=== PATIENT | female | born 1960 | race Caucasian/White ===

== ENCOUNTER 2020-11-17 03:04 | Outpatient (CLI) | payer MEDICARE, SELFPAY ==
[2020-11-17 12:39] LABS: Abs Immature Grans 0.02 10^3/uL (0.0-0.06); Absolute Basophil Count 0.08 10^3/uL (0.0-0.2); Absolute Eosinophil Count 0.32 10^3/uL (0.0-0.7); Absolute Lymphocyte Count 2.25 10^3/uL (1.2-3.4); Absolute Monocyte Count 0.55 10^3/uL (0.1-0.8); Absolute Neutrophil Count 3.63 10^3/uL (1.2-6.7); Basophils % 1.2; Eosinophils % 4.7; HCT 43.8 % (36.0-46.0); HGB 14.1 g/dL (11.2-15.7); Immature Grans % 0.3; Lymphocytes % 32.8; MCHC 32.2 % (32.0-36.0); MCV 96.3 fL (80-95); MPV 9.6 fL (8.0-11.0); Nucleated RBC 0 %; Platelet Count 343 10^3/uL (130-400); RBC 4.55 10^6/uL (3.93-5.22); RDW 12.3 % (11.7-14.6); RDW-SD 44.3 fL; WBC 6.85 10^3/uL (4.4-10.8)
[2020-11-17 13:14] LABS: ALT 24 U/L (14-59); AST 17 U/L (15-37); Albumin 3.9 g/dL (3.4-5.0); Alkaline Phosphatase 94 U/L (46-116); BUN 13 mg/dL (7-18); Bilirubin, Total 0.5 mg/dL (0.2-1.0); CREATININE 0.6 mg/dL (0.55-1.02); Calcium 9.1 mg/dL (8.5-10.1); Chloride 104 mmol/L (98-107); Glucose 87 mg/dL (74-106); Potassium 4.4 mmol/L (3.5-5.1); Sodium 140 mmol/L (136-145); TSH (W/Ref FT4) 0.47 uIU/mL (0.36-3.74); Total Protein 7.3 g/dL (6.4-8.2)
[2020-11-17 16:27] LABS: ESR 18 mm/hr (<or=30)
== END 2020-11-17 03:05 | disposition home or self-care (01) ==
LOC: LOS 03:05
PROVIDERS: PCP Family Medicine; Visit Provider Family Medicine
DX: R53.83 Other fatigue (principal); R22.1 Localized swelling, mass and lump, neck; F17.200 Nicotine dependence, unspecified, uncomplicated
CPT/HCPCS: 36415; 80053; 85652; 84443; 85025

== ENCOUNTER 2020-11-18 03:08 | Outpatient (CLI) | payer MEDICARE, SELFPAY ==
--- NOTE | 2020-11-18 08:45 | DI.CTLCSR_ITS ---
EXAM: CT CHEST LUNG CANCER SCREEN CLINICAL HISTORY: Screening for lung cancer,current smoker, f17.210 TECHNIQUE: Imaging Protocol: Axial computed tomography images with coronal and sagittal reformatted images were created and reviewed COMPARISON: No exams were available for comparison FINDINGS: Tracheobronchial tree: Patent where visualized. Mediastinum and Phoebe: No dominant adenopathy or fluid collection. Pulmonary parenchyma: No consolidation or dominant measurable mass. Minimal scarring or atelectasis a t the posterior lung bases. Minimal emphysematous changes. Lung Nodules: None. Pleura: No effusion or pneumothorax. Heart: The heart is not dilated. Minimal coronary artery calcifications are seen. Aorta: Thoracic aorta non-dilated.Mild calcification. Upper abdomen: Unremarkable. Bones: Degenerative disc changes. Soft Tissues: Unremarkable. IMPRESSION: Normal low dose CT lung screening Category Lung RADS Cat 1 - Negative: No nodules and definitely benign nodules Lung-RADS 1.0 CATEGORIES: Category 0 - Prior chest CT exam(s) being located for comparison. Category 1 - Annual screening in 12 months. No nodules or definitely benign nodules. Category 2 - Annual screening in 12 months. Benign appearance. Nodules with low likelihood of becomin g active cancer. Category 3 - 6-month follow-up. Probably benign. Short-term follow-up suggested. Nodules with low lik elihood of becoming active cancer. Category 4A - 3-month follow-up and CT/PET if >8 mm in size. Suspicious finding. Findings which requi re additional testing. Category 4B - Findings which require additional testing and tissue sampling. Suspicious finding. C Added to Any of the Above - History of prior lung cancer screening. S Added to Any of the Above - Significant unexpected other finding. RADIATION DOSE DELIVERED: 78.48mGy.cm Total DLP 1.84mGy CTDIvol DATA REPOSITORY: All CT scans at this facility are submitted to the National Radiology Data Registry (NRDR) Dose Index Registry (DIR) with the [employer] (ACR). RADIATION OPTIMIZATION: All CT scans at this facility use at least one of these dose optimization te chniques: automated exposure control; mA and/or kV adjustment per patient size (includes targeted exa ms where dose is matched to clinical indication); or iterative reconstruction.
[2020-11-18] MEDS: Normal Saline Flush 10 ML SYR IVP (13:42)
[2020-11-18] MEDS: Omnipaque 350 MG/ML 100 ML BTL IJ (13:42)
[2020-11-18] MEDS: Normal Saline - Diluent 50 ML VIAL IV (13:43)
--- NOTE | 2020-11-18 13:45 | DI.CT_ITS ---
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 TECHNIQUE: Imaging Protocol: Axial computed tomography images with coronal and sagittal reformatted images were created and reviewed. CONTRAST MATERIAL: Intravenous: Omnipaque 350 Contrast volume:100 ml Contrast route:IV - COMPARISON: No exams were available for comparison FINDINGS: Ventricles and Extra axial spaces: Normal in size and morphology for the patient's age. Hemorrhage: None. Cerebral parenchyma: Normal. Enhancement: No suspicious enhancement. Midline shift: None. Brainstem/Cerebellum: Normal. Calvarium: Normal. Visualized Paranasal sinuses/Mastoids: Clear. Orbits and pituitary are unremarkable. IMPRESSION: Normal CT scan of the head. RADIATION DOSE DELIVERED: Total DLP DATA REPOSITORY: All CT scans at this facility are submitted to the National Radiology Data Registry (NRDR) Dose Index Registry (DIR) with the [employer] (ACR). RADIATION OPTIMIZATION: All CT scans at this facility use at least one of these dose optimization te chniques: automated exposure control; mA and/or kV adjustment per patient size (includes targeted exa ms where dose is matched to clinical indication); or iterative reconstruction.
--- NOTE | 2020-11-18 13:45 | DI.CT_ITS ---
EXAM: CT NECK W CLINICAL HISTORY: disseminated pleomorphic adenoma,MASS IN NECK,R22.1. TECHNIQUE: Imaging Protocol: Axial computed tomography images with coronal and sagittal reformatted images were created and reviewed CONTRAST MATERIAL: Intravenous: Omnipaque 350 Contrast volume:100 ml Contrast route:IV - COMPARISON: No exams were available for comparison FINDINGS: Parotids/submandibular/thyroid gland: Normal. Carotids/Jugular: Mild calcific plaque at the common carotid bulbs. No significant stenosis. Soft tissues: Markers are placed on the left side of the neck in the area of the palpable abnormaliti es. There are circumscribed mildly heterogeneous soft tissue masses corresponding to the palpable ab normalities. The larger and more anterior measures 2.5 by 1.8 by 2 cm. There are a few other tiny a djacent nodules. Two other nodules were marked, 1 measuring 13 millimeters in diameter and the other measuring 15 by 9 millimeters. The floor the mouth is unremarkable. The epiglottis and vocal cords are within normal limits. Minimal emphysematous changes at the lung apices. Degenerative changes are seen in the cervical spine. IMPRESSION: Circumscribed soft tissue density masses on the left side of the neck as described above. RADIATION DOSE DELIVERED: Total DLP DATA REPOSITORY: All CT scans at this facility are submitted to the National Radiology Data Registry (NRDR) Dose Index Registry (DIR) with the [employer] (ACR). RADIATION OPTIMIZATION: All CT scans at this facility use at least one of these dose optimization te chniques: automated exposure control; mA and/or kV adjustment per patient size (includes targeted exa ms where dose is matched to clinical indication); or iterative reconstruction.
== END 2020-11-18 03:09 ==
LOC: DI 03:08
PROVIDERS: PCP Family Medicine; Visit Provider Family Medicine
DX: Z12.2 Encounter for screening for malignant neoplasm of respiratory organs (principal); F17.210 Nicotine dependence, cigarettes, uncomplicated; R22.1 Localized swelling, mass and lump, neck
CPT/HCPCS: 70491; 71271; 70470; J3490

== ENCOUNTER 2020-12-14 10:50 | Outpatient (REF) | payer MEDICARE, SELFPAY ==
--- NOTE | 2020-12-14 09:45 | PAPNONF_PTH ---
PATIENT: Nida Madden LOC: [facility] U#:[id number] AGE/SX: 60/F ROOM: RE12/14/[address]: CONSUELO Burns : 1960 BED: DIS: 12/14/2020 SPEC #: [id number] RECD: 12/15/20 13:03 STATUS: RAFAL REJuanita #: [id number] ABBI: 12/14/20 09:[address]: Trey Cope DEPT: [facility] Cytology RECD BY: Geraldine Wong ENTERED: 12/15/20 13:04 SP TYPE: LUANN MALDONADO DR: Cindy Fitch MD, DC Tissues: 1 - BODY FLUID CYTO-FINE NEEDLE ASPIRATE-[facility] 2 - BODY FLUID CYTO-FINE NEEDLE ASPIRATE-[facility] 3 - BODY FLUID CYTO-FINE NEEDLE ASPIRATE-[facility] Procedures: IMMUNOPEROXIDASE STAIN BODY FLUID CYTO-FINE NEEDLE ASPIRATE-[facility] Comments: [id number]
== END 2020-12-14 10:51 | disposition home or self-care (01) ==
LOC: LBN 10:50
PROVIDERS: PCP Family Medicine; Visit Provider Physician Assistant
DX: D37.030 Neoplasm of uncertain behavior of the parotid salivary glands (principal)
CPT/HCPCS: 88104; 88361

== ENCOUNTER 2021-05-04 13:54 | Outpatient (CLI) | payer MEDICARE, SELFPAY ==
--- NOTE | 2021-05-04 13:45 | RT.EKG_ITS ---
APPROVED REPORT Exam: Resting ECG Reason for Exam: Pre-op exam Patient Location: O HR:68 bpm ECG Measurements Heart Rate 68 AXIS [place] 148 P 13 QRSd 91 QRS 31 QT 385 T 51 QTc 409 Conclusion Sinus rhythm...normal P axis, V-rate 60- 99
== END 2021-05-04 13:55 | disposition home or self-care (01) ==
LOC: DI.CM 13:55
PROVIDERS: PCP Family Medicine; Visit Provider Family Medicine
DX: Z01.818 Encounter for other preprocedural examination (principal)
CPT/HCPCS: 93010

== ENCOUNTER 2021-07-05 04:14 | Outpatient (CLI) | payer MEDICARE, SELFPAY ==
[2021-07-05 09:38] LABS: CREATININE 0.7 mg/dL (0.55-1.02)
== END 2021-07-05 04:15 | disposition home or self-care (01) ==
LOC: LBO 04:14
PROVIDERS: PCP Family Medicine; Visit Provider Preventive Medicine Undersea and Hyperbaric Medicine
DX: C07 Malignant neoplasm of parotid gland (principal)
CPT/HCPCS: 36415; 82565

== ENCOUNTER 2021-10-02 14:16 | Outpatient (REF) | payer MEDICARE, SELFPAY ==
--- NOTE | 2021-10-02 13:45 | PAPFT_PTH ---
PATIENT: Nida Madden LOC: [facility] U#:[id number] AGE/SX: 61/F ROOM: RE10/02/[address]: Cindy Fitch MD, DC : 1960 BED: DIS: 10/02/2021 SPEC #: [id number] RECD: 10/02/21 18:15 STATUS: RAFAL REQ #: [id number] ABBI: 10/02/21 13:[address]: Cindy Fitch DEPT: [facility] Cytology RECD BY: Geraldine Wong Tissues: 1 - CX/ENDOCX FOR PAP SMEARS Procedures: PAP THIN PREP/[facility] Screening HPV DNA PROBE Comments: [id number]
== END 2021-10-02 14:17 | disposition home or self-care (01) ==
LOC: LBN 14:16
PROVIDERS: PCP Family Medicine; Visit Provider Family Medicine
DX: Z12.4 Encounter for screening for malignant neoplasm of cervix; Z11.51 Encounter for screening for human papillomavirus (HPV); Z01.419 Encounter for gynecological examination (general) (routine) without abnormal findings
CPT/HCPCS: 88142; 87624

== ENCOUNTER 2021-10-19 02:25 | Outpatient (CLI) | payer MEDICARE, SELFPAY ==
--- NOTE | 2021-10-19 08:06 | DI.MAMMO_ITS ---
Exam(s) MAMMO SCREENING EXAM: MAMMO SCREENING CLINICAL HISTORY: screening,z12.39 TECHNIQUE: Bilateral full field digital CC and MLO mammographic images were obtained with 3D tomosyn thesis and utilizing computer aided detection (CAD). COMPARISON: None. FINDINGS: Masses/Architectural Distortion: There is an area of asymmetric breast tissue in the medial aspect of the left breast. This may represent fibroglandular tissue but a spot compression views requested fo r further evaluation. Microcalcifications: No suspicious pleomorphic-type are seen. Skin Thickening/Nipple Retraction: None. IMPRESSION: 1. Spot CC compression view requested on the left breast. 2. Ultrasound may be indicated at that time. BI-RADS Category 0 - Assessment Incomplete: Need additional imaging evaluation Breast Density - Category B - Scattered areas of fibroglandular density Breast density category C or D implies that the patient has dense breast tissue. Dense breast tissue is very common and is not abnormal but dense breast tissue can make it harder to find cancer on a ma mmogram. Also, dense breast tissue may increase their breast cancer risk. This information about the result of the mammogram report was provided to the patient to raise their awareness. Use this report when you speak with the patient about their risks for breast cancer, which includes their family hist ory. At that time, you may recommend for more screening tests (Ultrasound or MRI) as they might be us eful based on their risk. A negative radiographic report should not delay biopsy if a dominant or clinically suspicious mass is present. Up to ten percent of cancers are not identified on mammography. A negative report may reinforce clinical impression. Adenosis and dense breasts may obscure an underlying neoplasm. False positive reports average 6 to 10%. Patient will receive a letter notifying them of these results.
== END 2021-10-19 02:45 ==
PROVIDERS: PCP Family Medicine; Visit Provider Family Medicine
DX: Z12.31 Encounter for screening mammogram for malignant neoplasm of breast (principal); R92.8 Other abnormal and inconclusive findings on diagnostic imaging of breast
CPT/HCPCS: 77063; 77067

== ENCOUNTER 2021-11-06 00:31 | Outpatient (CLI) | payer MEDICARE, SELFPAY ==
--- NOTE | 2021-11-06 | DI.MAMMO_ITS ---
Exam(s) MG MAMMO SCREEN CALL BACK UNI EXAM: MAMMO SCREEN CALL BACK UNI -LEFT AND COMPLETE LEFT BREAST ULTRASOUND CLINICAL HISTORY: ASYMMETRIC BREAST TISSUE IN MEDIAL ASPECT OF LT BREAST. TECHNIQUE: Unilateral spot mammographic images obtained with 3D tomosynthesisand utilizing computer aided detection (CAD). . Complete LEFT breast Ultrasound was also performed, including all 4 quadrants, the retroareolar regio n, and the ipsilateral axilla. COMPARISON: Prior mammograms were reviewed. This additional imaging was performed due to findings described on the recent screening mammogram of . FINDINGS: Additional mammographic view performed todayis equivocal. Therefore proceeded with ultrasound Ultrasound performed today reveals no evidence of solid or significant cystic lesions in all 4 quadra nts of the left breast nor in the retroareolar region.. Left axilla is negative for adenopathy. IMPRESSION: Benign findings. Appropriate follow-up is repeat left breast imaging in 6 months, this to include repeat left breast mammogram and ultrasound, with earlier imaging if a self detected breast change is noted. The patient was informed of these findings and recommendations prior to leaving the department today. BI-RADS Category 3 - 6 month - Probably Benign Finding: Recommend follow-up mammography in 6 months Breast Density - Category B - Scattered areas of fibroglandular density Breast density Category C or D implies that the patient has dense breast tissue. Dense breast tissue can make it harder to find cancer on a mammogram. Dense breast tissue is also associated with an incr eased risk of breast cancer. This information about the result of the mammogram report was provided to the patient to raise their awareness. Use this report when you speak with the patient about their risks for breast cancer, which includes their family history. At that time, you may recommend additional screening tests (Ultrasoun d or MRI) as these tests may add significant information. A negative radiographic report should not delay biopsy if a dominant or clinically suspicious mass is present. Up to ten percent of cancers are not identified on mammography. A negative report may reinforce clinical impression. Adenosis and dense breasts may obscure an underlying neoplasm. False positive reports average 6 to 10%. Patient will receive a letter notifying them of these results.
--- NOTE | 2021-11-06 | DI.US_ITS ---
Exam(s) US BREAST LT COMPLETE EXAM: US BREAST LT COMPLETE CLINICAL HISTORY: ASYMETRIC BREAST TISSUE IN MEDIAL ASPECT OF LT BREAST. TECHNIQUE: Complete ultrasound of the left breast was performed including all 4 quadrants, the retro areolar region, and the ipsilateral axilla. COMPARISON: Prior recent based mammogram was reviewed. Today's spot compression cc view was reviewe d FINDINGS: There is no evidence of solid nor significant cystic lesions in all 4 quadrants of the left breast. Retroareolar region also negative. Left axilla is negative for significant adenopathy. IMPRESSION: Negative complete left breast ultrasound Appropriate follow-up is repeat left breast mammogram in 6 months to ensure stability. BI-RADS Category 3 - 6 month - Probably Benign Finding: Recommend follow-up mammography in 6 months Breast Density - Category B - Scattered areas of fibroglandular density Breast density Category C or D implies that the patient has dense breast tissue. Dense breast tissue can make it harder to find cancer on a mammogram. Dense breast tissue is also associated with an incr eased risk of breast cancer. This information about the result of the mammogram report was provided to the patient to raise their awareness. Use this report when you speak with the patient about their risks for breast cancer, which includes their family history. At that time, you may recommend additional screening tests (Ultrasoun d or MRI) as these tests may add significant information. A negative radiographic report should not delay biopsy if a dominant or clinically suspicious mass is present. Up to ten percent of cancers are not identified on mammography. A negative report may reinforce clinical impression. Adenosis and dense breasts may obscure an underlying neoplasm. False positive reports average 6 to 10%. Patient will receive a letter notifying them of these results.
== END 2021-11-06 00:51 ==
PROVIDERS: PCP Family Medicine; Visit Provider Family Medicine
DX: Z12.31 Encounter for screening mammogram for malignant neoplasm of breast (principal); R92.8 Other abnormal and inconclusive findings on diagnostic imaging of breast; N64.59 Other signs and symptoms in breast
CPT/HCPCS: 76642; 77063; 77067

== ENCOUNTER 2021-11-20 00:30 | Outpatient (CLI) | payer MEDICARE, SELFPAY ==
--- NOTE | 2021-11-20 08:41 | DI.CTLCSR_ITS ---
Exam(s) CT CHEST LUNG CANCER SCREEN EXAM: CT CHEST LUNG CANCER SCREEN CLINICAL HISTORY: Screening for lung cancer,current smoker, f17.210 TECHNIQUE: Imaging Protocol: Axial computed tomography images with coronal and sagittal reformatted images were created and reviewed COMPARISON: CT CT CHEST LUNG CANCER SCREEN from 11/18/2020 FINDINGS: Tracheobronchial tree: Patent where visualized. Mediastinum and Phoebe: No dominant adenopathy or fluid collection. Pulmonary parenchyma: No consolidation or dominant measurable mass. Minimal linear scarring or atelec tasis at the right lung base. Minimal emphysematous changes. Lung Nodules: None. Pleura: No effusion or pneumothorax. Heart: The heart is not dilated. Mild coronary artery calcifications are seen. Aorta: Thoracic aorta non-dilated.Mild calcification. Upper abdomen: Unremarkable. Bones: Degenerative disc changes. Soft Tissues: Unremarkable. IMPRESSION: Normal low dose CT lung screening Lung RADS Cat 1 - Negative: No nodules and definitely benign nodules Lung-RADS 1.0 CATEGORIES: Category 0 - Prior chest CT exam(s) being located for comparison. Category 1 - Annual screening in 12 months. No nodules or definitely benign nodules. Category 2 - Annual screening in 12 months. Benign appearance. Nodules with low likelihood of becomin g active cancer. Category 3 - 6-month follow-up. Probably benign. Short-term follow-up suggested. Nodules with low lik elihood of becoming active cancer. Category 4A - 3-month follow-up and CT/PET if >8 mm in size. Suspicious finding. Findings which requi re additional testing. Category 4B - Findings which require additional testing and tissue sampling. Category 4X - Category 3 or 4 nodules with additional features or imaging findings that increases the suspicion of malignancy. Modifier S- Potentially clinically significant findings (non lung cancer) RADIATION DOSE DELIVERED: 85.91mGy.cm Total DLP 1.84mGy CTDIvol DATA REPOSITORY: All CT scans at this facility are submitted to the National Radiology Data Registry (NRDR) Dose Index Registry (DIR) with the [employer] (ACR). RADIATION OPTIMIZATION: All CT scans at this facility use at least one of these dose optimization te chniques: automated exposure control; mA and/or kV adjustment per patient size (includes targeted exa ms where dose is matched to clinical indication); or iterative reconstruction.
== END 2021-11-20 00:50 ==
PROVIDERS: PCP Family Medicine; Visit Provider Family Medicine
DX: Z12.2 Encounter for screening for malignant neoplasm of respiratory organs (principal); F17.210 Nicotine dependence, cigarettes, uncomplicated; J98.4 Other disorders of lung
CPT/HCPCS: 71271

== ENCOUNTER → 2021-11-27 03:20 | Outpatient (CLI) | payer MEDICARE, SELFPAY ==
[2021-11-27 09:19] LABS: CREATININE 0.6 mg/dL (0.55-1.02)
[2021-11-27] MEDS: Omnipaque 350 MG/ML 100 ML BTL IJ (10:06)
--- NOTE | 2021-11-27 10:15 | DI.CT_ITS ---
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 TECHNIQUE: Imaging Protocol: Axial computed tomography images with coronal and sagittal reformatted images were created and reviewed CONTRAST MATERIAL: Intravenous: Omnipaque 350 Contrast volume:100 cc Oral: no COMPARISON: CT CT NECK W from 11/18/2020 FINDINGS: The previously noted left-sided masses beneath the level of the left parotid gland have been resected . There is minimal residual scarring in the soft tissues. There is asymmetry of the left parotid gl and and some increased density compared to the right. No focal mass is visible./submandibular and th yroid gland: Normal. Lymphadenopathy: There is scattered lymph nodes seen along the level one to level three all measurin g less than 8 mm in short axis diameter which are physiologic in nature. Bones: Degenerative changes . No lytic or blastic lesions. Carotids/Jugular: Atherosclerotic changes at the common carotid bulbs. No significant stenosis. Soft tissues: The floor the mouth is unremarkable. The epiglottis and vocal cords are within normal limits. Images through both lung apices are unremarkable. Visualized portions of the brain are unrema rkable. IMPRESSION: Previously noted left-sided masses are no longer present. Mild asymmetry and increased density of th e left parotid gland could be secondary to treatment related changes. RADIATION DOSE DELIVERED: 315.8mGy.cm Total DLP DATA REPOSITORY: All CT scans at this facility are submitted to the National Radiology Data Registry (NRDR) Dose Index Registry (DIR) with the [employer] (ACR). RADIATION OPTIMIZATION: All CT scans at this facility use at least one of these dose optimization te chniques: automated exposure control; mA and/or kV adjustment per patient size (includes targeted exa ms where dose is matched to clinical indication); or iterative reconstruction.
== END ==
PROVIDERS: PCP Family Medicine; Visit Provider Preventive Medicine Undersea and Hyperbaric Medicine
DX: C07 Malignant neoplasm of parotid gland (principal)
CPT/HCPCS: 70491; 82565; J3490

== ENCOUNTER 2022-02-28 08:39 | Outpatient (CLI) | payer MEDICARE, SELFPAY ==
[2022-02-28 09:24] LABS: TSH 0.66 uIU/mL (0.36-3.74)
== END 2022-02-28 08:40 | disposition home or self-care (01) ==
LOC: LBO 08:40
PROVIDERS: PCP Family Medicine; Visit Provider Preventive Medicine Undersea and Hyperbaric Medicine
DX: E03.8 Other specified hypothyroidism (principal)
CPT/HCPCS: 36415; 84443

== ENCOUNTER → 2022-03-27 01:25 | Outpatient (CLI) | payer MEDICARE, SELFPAY ==
--- NOTE | 2022-03-27 | DI.MRI_ITS ---
Exam(s) MR CERVICAL SPINE WO/W EXAM: MR CERVICAL SPINE WO CLINICAL HISTORY: SALIVARY GLAND CA,S/P SURGERY AND XRT,NEW ONSET PAIN BASE OF SKULL,C1,ALTER TECHNIQUE: Multiplanar multisequence MRI of the cervical spine was performed without intravenous con trast. COMPARISON: CT CT NECK W from 11/27/2021 FINDINGS: CERVICOMEDULLARY JUNCTION: Intact with no evidence of cerebellar tonsillar ectopia. No obvious abnor mality of the odontoid process. No evidence of Chiari 1 malformation. CERVICAL SPINAL CORD: There is no abnormal signal in the cervical spinal cord and no evidence of foca l cord atrophy nor focal cord swelling. OSSEOUS:There are no cervical fractures evident. No significant osseous lesions in the cervical vert ebrae. There is straightening and mild reversal of the normal lordotic curvature of the cervical spi ne. INDIVIDUAL LEVELS: C2-3: No disc herniation nor central canal stenosis. Right facet joints unremarkable. Significant d egenerative changes in the left facet joints, with mild left-sided foraminal stenosis. No right-side d foraminal stenosis. C3-4: Mild disc space narrowing. Mild degenerative anterolisthesis C3 upon C4, mostly related to fac et arthropathy on the left side. Thereis no disc herniation at this level. No central spinal canal stenosis at this level. No foraminal stenosis on the right side. Some foraminal stenosis on the lef t side is noted, most probably related to the asymmetric left-sided facet arthropathy also evident at this level. C4-5: This level exhibits advanced chronic disc space narrowing and bilateral Luschka joint osteophyt es. Relatively symmetrical posterior annular bulging noted at this level. There are bilateral Lusch ka joint osteophytes at this level evident. Also bilateral for facet arthropathy. There is moderate foraminal stenosis on both sides at this level. C5-6: Advanced disc space narrowing also evident at this level. Bilateral Luschka joint osteophytes. There is broad annular bulging. There is mild-moderate central canal stenosis at this level. Mode rate bilateral foraminal stenosis noted. This related to Luschka joint osteophytes and some degenera tive changes facet joints although the amount of facet arthropathy at this level is less than the lev els above. C6-7: Advanced disc space narrowing at this level also evident. Mild annular bulging without a domin ant disc herniation. Mild central canal stenosis. Bilateral Luschka joint osteophytes. Mild bilate ral foraminal stenosis. Only mild facet arthropathy. C7-T1: Chronic advanced disc space narrowing also evident at this level. Annular bulging but without a dominant disc herniation. Central canal dimensions normal. There is moderate bilateral foraminal stenosis at this level due to annular bulging in the neural foramen and some degenerative changes th e facet joints bilaterally. IMPRESSION: 1. Multilevel chronic degenerative disc disease with findings as discussed individually above. There is mild-moderate central canal stenosis at C5-6 level. There is multilevel foraminal stenosis most related to facet arthropathy and disc space height loss. 2. No ominous osseous lesions. 3. No abnormal signal in the cervical spinal cord. No focal cord atrophy nor focal cord swelling. DATA REPOSITORY:
[2022-03-27 13:00] LABS: CREATININE 0.6 mg/dL (0.55-1.02)
[2022-03-27] MEDS: Normal Saline Flush 10 ML SYR IVP (13:11)
== END ==
PROVIDERS: PCP Family Medicine; Visit Provider Preventive Medicine Undersea and Hyperbaric Medicine
DX: M48.02 Spinal stenosis, cervical region (principal); M47.812 Spondylosis without myelopathy or radiculopathy, cervical region; M50.30 Other cervical disc degeneration, unspecified cervical region; C07 Malignant neoplasm of parotid gland; R51.9 Headache, unspecified; Z98.890 Other specified postprocedural states; Z92.3 Personal history of irradiation
CPT/HCPCS: 72156; 82565

== ENCOUNTER → 2022-04-18 01:51 | Outpatient (CLI) | payer MEDICARE, SELFPAY ==
--- NOTE | 2022-04-18 07:00 | DI.RAD_ITS ---
Exam(s) XR LUMBAR SPINE COMPLETE EXAM: XR LUMBAR SPINE COMPLETE CLINICAL HISTORY: LBP, CERVICAL ARTHRITIS, M54.50, M47.812, SPONDYLOSIS W/O MYLEOP/RAD. TECHNIQUE: 2D digital imaging was performed of the lumbar spine. Five images were obtained. AP, la teral, right oblique, left oblique and L5-S1 spot views were obtained. COMPARISON: No exams were available for comparison FINDINGS: BONES: No fracture or destructive lesion. Endplate osteophytes are seen throughout the lumbar spine. Degenerative facet changes are seen at L5-S1. DISKS: There is disc space narrowing and a vacuum disc at L2-L3. ALIGNMENT: There is a mild right convex curvature of the lumbar spine. There is no spondylolysis. T here is grade 1 pseudo spondylolisthesis of L5 on S1. SOFT TISSUE: Atherosclerosis is present. IMPRESSION: Moderate degenerative changes in the lumbar spine. DATA REPOSITORY: RADIATION DOSE DELIVERED:
== END ==
PROVIDERS: PCP Family Medicine; Visit Provider Family Medicine
DX: M47.812 Spondylosis without myelopathy or radiculopathy, cervical region (principal); M47.817 Spondylosis without myelopathy or radiculopathy, lumbosacral region
CPT/HCPCS: 72110

== ENCOUNTER → 2022-05-10 02:12 | Outpatient (CLI) | payer MEDICARE, SELFPAY ==
--- NOTE | 2022-05-10 07:00 | DI.MAMMO_ITS ---
Exam(s) MG MAMMO DIAGNOSTIC UNI EXAM: MAMMO DIAGNOSTIC UNI CLINICAL HISTORY: 3-6 MO F/U,F/U ABNL/INCONCLUSIVE MAMMO, R92.8,Z09 TECHNIQUE: Left cc and MLO mammogram images were performed according to the usual protocol includi ng computer analysis with CAD system, tomosynthesis and C-view imaging. COMPARISON: No exams were available for comparison FINDINGS: The left breast is composed of scattered fibroglandular densities, Breast Density category B. No suspicious masses or suspicious microcalcifications are seen. No skin thickening or abnormal axillary lymph nodes are seen. There has been no change in the island of fibroglandular tissue. IMPRESSION: BI-RADS Category 1, Negative mammogram Yearly screening mammography is recommended. Breast Density - Category B, scattered fibroglandular densities. A negative radiographic report should not delay biopsy if a dominant or clinically suspicious mass is present. Up to ten percent of cancers are not identified on mammography. A negative report may reinforce clinical impression. Adenosis and dense breasts may obscure an underlying neoplasm. False positive reports average 6 to 10%. Patient will receive a letter notifying them of these results.
== END ==
PROVIDERS: PCP Family Medicine; Visit Provider Family Medicine
DX: R92.8 Other abnormal and inconclusive findings on diagnostic imaging of breast (principal); Z09 Encounter for follow-up examination after completed treatment for conditions other than malignant neoplasm
CPT/HCPCS: 77061; 77065; G0279

== ENCOUNTER → 2022-09-03 02:31 | Outpatient (CLI) | payer MEDICARE, SELFPAY ==
[2022-09-03 09:39] LABS: CREATININE 0.7 mg/dL (0.55-1.02); Estimated GFR 96.52 (mL/min/1.73m2)
--- NOTE | 2022-09-03 10:13 | DI.CT_ITS ---
Exam(s) CT CHEST WO EXAM: CT CHEST WO CLINICAL HISTORY: PAROTID GLAND CANCER C07, S/P SURGERY AND RADIOTHERAPY. TECHNIQUE: Multi planar reconstructions were performed. CONTRAST MATERIAL: None COMPARISON: CT CT CHEST LUNG CANCER SCREEN from 11/20/2021 FINDINGS: CHEST: LUNGS: Mild benign-appearing subpleural markings in the posterior basal segment of the right lower lo be are unchanged. There are no new confluent infiltrates nor pleural effusions. There are no ominou s pulmonary nodules. No new findings in trachea and mainstem bronchi. MEDIASTINUM: There is no obvious hilar nor mediastinal adenopathy. No supraclavicular adenopathy. No axillary adenopathy. CARDIAC: Heart size is normal. There is no pericardial effusion.Diameter of the ascending thoracic a uzair is enlarged at 3.9 cm, unchanged. Diameter of the aortic arch and descending thoracic aorta are upper normal. VISUALIZED UPPER ABDOMEN:No adrenal masses. No splenomegaly. OSSEOUS: No significant osseous lesions.. IMPRESSION: 1. No significant pulmonary nodules, pleural effusions, nor intrathoracic adenopathy. 2. Ascending thoracic aorta diameter is again noted be enlarged at 3.9 cm, unchanged. 3. RADIATION DOSE DELIVERED: 519.11mGy.cm Total DLP DATA REPOSITORY: All CT scans at this facility are submitted to the National Radiology Data Registry (NRDR) Dose Index Registry (DIR) with the [employer] (ACR). RADIATION OPTIMIZATION: All CT scans at this facility use at least one of these dose optimization te chniques: automated exposure control; mA and/or kV adjustment per patient size (includes targeted exa ms where dose is matched to clinical indication); or iterative reconstruction.
--- NOTE | 2022-09-03 10:19 | DI.CT_ITS ---
Exam(s) CT NECK W EXAM: CT NECK W INDICATION: PAROTID GLAND CANCER C07, S/P SURGERY AND RADIOTHERAPY. COMPARISON: CT CT NECK W from 11/18/[address] NECK W from 11/27/2021 TECHNIQUE: Omnipaque 350-100 mL intravenous contrast FINDINGS: Salivary glands: The left side parotid appears unchanged from 11/27/2021 and there is been no recurre nce of the previously present left-sided mass which was seen on CT scan of 11/18/2020. No new lympha denopathy evident. The opposite-right parotid gland appears unremarkable. Submandibular glands: Right side unremarkable. Left side unchanged, being slightly hypodense dense p ossibly related to treatment. No new mass nor lymphadenopathy at this level seen. NASOPHARYNX: Unremarkable OROPHARYNX: Unremarkable. No masses evident. HYPOPHARYNX: Unremarkable. Valleculae and epiglottis and aryepiglottic folds appear normal. VOCAL CORDS: Unremarkable THYROID GLAND: Unremarkable. Normal size and no obvious nodules. LYMPH NODES: There is no new adenopathy evident in the neck and supraclavicular regions. OTHER: Calcified plaque again noted both carotid bifurcations and proximal ICAs.. VISUALIZED LUNG APICES: No significant findings. IMPRESSION: 1. There is no recurrence of the previously present large left-sided neck mass seen on CT scan of . Left-sided findings described above her most probably postsurgical. 2. No new additional findings evident 3. CONTRAST MATERIAL: Intravenous: Omnipaque 350 Contrast volume:100 mL RADIATION DOSE DELIVERED: 341.05mGy.cm Total DLP 341.05mGy.cm Total DLP DATA REPOSITORY: All CT scans at this facility are submitted to the National Radiology Data Registry (NRDR) Dose Index Registry (DIR) with the [employer] (ACR). RADIATION OPTIMIZATION: All CT scans at this facility use at least one of these dose optimization te chniques: automated exposure control; mA and/or kV adjustment per patient size (includes targeted exa ms where dose is matched to clinical indication); or iterative reconstruction.
[2022-09-03] MEDS: Omnipaque 350 MG/ML 500 ML BTL-Imaging package 100 ML IJ (10:30)
== END ==
PROVIDERS: PCP Family Medicine; Visit Provider Preventive Medicine Undersea and Hyperbaric Medicine
DX: Z01.812 Encounter for preprocedural laboratory examination (principal); C07 Malignant neoplasm of parotid gland; Z92.3 Personal history of irradiation
CPT/HCPCS: 70491; 71250; 82565

== ENCOUNTER 2022-10-22 02:14 | Outpatient (CLI) | payer MEDICARE, SELFPAY ==
--- NOTE | 2022-10-22 07:49 | DI.RAD_ITS ---
Exam(s) XR HIP LT COMPLETE AP PELVIS EXAM: XR HIP LT COMPLETE AP PELVIS CLINICAL HISTORY: l hip pain,m25.552. TECHNIQUE: 2D digital imaging was performed of the left hip. Two views were obtained. AP pelvis an d lateral left hip views were obtained. COMPARISON: No exams were available for comparison FINDINGS: BONES: No acute fracture is present. No bony destructive lesion is seen. JOINTS: No dislocation present. There is mild narrowing of the hip joints bilaterally. The sacroilia c joints and symphysis pubis are unremarkable. There are mild degenerative changes seen in the lower lumbar spine. SOFT TISSUE: Normal. IMPRESSION: Mild degenerative changes seen in the left hip. DATA REPOSITORY: RADIATION DOSE DELIVERED:
== END 2022-10-22 02:34 ==
LOC: DI 02:14
PROVIDERS: PCP Family Medicine; Visit Provider Family Medicine
DX: M25.552 Pain in left hip (principal); M16.12 Unilateral primary osteoarthritis, left hip
CPT/HCPCS: 73502

== ENCOUNTER → 2023-01-24 11:28 | Outpatient (BNVA) | payer MEDICARE, SELFPAY | PROVIDERS: PCP Family Medicine; Referring Provider Family Medicine; Visit Provider Physical Therapy Assistant | DX: Z12.11 Encounter for screening for malignant neoplasm of colon (principal); Z80.0 Family history of malignant neoplasm of digestive organs ==

== ENCOUNTER 2023-02-12 12:20 | Day surgery (SDC) | payer MEDICARE, SELFPAY ==
[2023-02-12] MEDS: Lactated Ringers 1,000 ML 80 ML IV (14:45)
[2023-02-12 14:53] VITALS: BP 131/91; PULSE 96; RESP 17; TEMP 37.1; O2SAT 98
--- NOTE | 2023-02-12 15:22 | W.ANESPRE ---
General Info Date of Service Date Performed: 02/12/23 Height: 5 ft 3 in Weight: 79.5 kg Body Mass Index (BMI): 31.0 Surgical Procedure: Operation Date: 02/12/23 14:50 Proposed Procedure Side Surgeon p Bean Saunders MD Meds Allergies and Home Medications Allergies Allergy/AdvReac Type Severity Reaction Status Date / Time Tetracyclines Allergy Hives Verified 02/12/23 14:49 Home Medication Medication Instructions Recorded propylene glycol 0.6 % eye drops 1 drp ophthalmic (eye) DAILY PRN 10/02/21 (Systane Balance) naproxen sodium 220 mg capsule 220 mg PO BID PRN 04/16/22 (Aleve) budesonide-formoterol HFA 160 2 puff inhalation BID #10.2 grams 01/09/23 mcg-4.5 mcg/actuation aerosol inhaler (Symbicort) cyclobenzaprine 10 mg tablet 10 mg PO HS PRN muscle spasm #30 01/09/23 tabs acetaminophen 500 mg tablet 1,000 mg PO Q6H PRN 01/24/23 (Tylenol Extra Strength) bisacodyl 5 mg tablet,delayed 5 mg PO ONCE colonscopy bowel prep 01/24/23 release (Dulcolax (bisacodyl)) #8 tabs ibuprofen 200 mg tablet 400 mg PO Q6H PRN 01/24/23 polyethylene glycol 3350 17 238 g PO ONCE colonoscopy prep 01/24/23 gram/dose oral powder #238 grams albuterol sulfate 90 mcg/actuation 2 puff inhalation Q8H 02/12/23 aerosol inhaler (ProAir HFA) Current Visit Medications: Current Medications Generic Name Dose Route Start Last Admin Trade Name Freq PRN Reason Stop Dose Admin Ringer's Solution 1,000 mls @ 80 mls/hr 02/12/23 06:00 02/12/23 14:45 IV 02/12/23 23:59 80 mls/hr INFUSION BRENDON Administration IV Miscellaneous Supplies 1 each 02/12/23 06:00 Iv Access IV 02/12/23 23:59 DIRECTED BRENDON Sodium Chloride 0 ml 02/12/23 06:00 Normal Saline Flush 10 Ml Syr IV 02/12/23 23:59 PRN PRN Sodium Chloride 0 ml 02/12/23 06:00 Normal Saline 10 Ml Vial IJ 02/12/23 23:59 DIRECTED PRN Sterile Water 0 ml 02/12/23 06:00 Water,Injection,Sterile 10 Ml Vial IJ 02/12/23 23:59 DIRECTED PRN PFSH Active Problems Active Problems: Problem Status Onset Code 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 Rash R21 Low back pain M54.50 Cervical arthritis M47.812 Left hip pain M25.552 Encounter for screening colonoscopy Z12.11 Medical History Medical History Bunion of left foot Diverticulitis Intestine, perforation 1 month in hospital w/ drains Mass in neck removed-also had radiation over a year and a half ago Surgical History Surgical History (Updated 02/12/23 @ 14:46 by Myra Vernon) History of bunionectomy of left great toe Tobacco Smoking/Tobacco Use Status: Current every day Tobacco Type: cigarettes Passive smoking exposure: Yes Second hand exposure: Yes Alcohol Alcohol Intake: current Alcohol intake frequency: holidays/special occasions only Substance Use Substance use: Never Substance use type: does not use Vital Signs and Lab Results Vital Signs Most Recent Vital Signs in EMR: Most Recent Vital Signs Temp Pulse Resp BP Pulse Ox 37.1 C 96 H 17 131/91 H 98 02/12/23 14:53 02/12/23 14:53 02/12/23 14:53 02/12/23 14:53 02/12/23 14:53 Lab Results Blood Type / Crossmatch: No Data to Display Complete Blood Count: No Data to Display Complete Metabolic Panel: No Data to Display Liver Function Panel: No Data to Display Coagulation Panel: No Data to Display Cardiac Panel: No Data to Display Arterial Blood Gas: No Data to Display Venous Blood Gas: No Data to Display Pancreas Panel: No Data to Display Thyroid Panel: No Data to Display Infectious Disease: No Data to Display Blood Cultures: No Data to Display Toxicology Panel: No Data to Display Imaging and Studies Imaging and Studies Study information below may be from another EMR and interpreted by another provider. Please see original notes in EMR for more complete details. EKG Summary: EKG PATIENT NAME: VITALY SOTELO #: [id number] ORDERING PROVIDER: Cindy Fitch M.D., DCACCOUNT #: [id number] PRIMARY CARE PROVIDER:CINDY FITCH MD, DC DATE/TIME OF SERVICE: 05/04/21 1535 : 1960PERFORMING LOCATION: [facility] APPROVED REPORT Exam: Resting ECG Reason for Exam: Pre-op exam Patient Location: O HR:68 bpm ECG Measurements Heart Rate 68 AXIS KS 148 P 13 QRSd 91 QRS 31 QT 385 T51 QTc 409 Conclusion Sinus rhythm...normal P axis, V-rate 60- 99 <Electronically signed by RAJI PINTO MD in OV> E-Sign Date: 05/05/21 E-Sign Time: 1142 Anesthesia Assessment and Plan Anesthesia History Personal History: No History of Anesthesia Complications Family History: No Family History of Anesthesia Complications Exercise Tolerance Exercise Tolerance: Metabolic Equivalents>4 Pertinent Negatives Pertinent Negatives: No Symptoms of GERD, No Major Cardiovascular Symptoms or Complaints and No History of CVA/TIA Cardiac & Pulmonary Exam Cardiac Exam: Normal S1/S2 Heart Sounds Pulmonary Exam: Clear Bilateral Breath Sounds Implantable Cardiac Device Does patient have a Pacemaker or an ICD?: No Airway Exam Known Difficult Airway: No Mallampati Class: 2 Mouth Opening: Normal (> 3cm) Thyromental Distance: Greater than 3 cm Neck Range of Motion: Limited ROM and Known Cervical Instability or radiculopathy (Very limited. If intubation needed glide is most appropriate option. ) Neck Circumference: Normal Teeth Condition: Generalized Poor Dentition ASA Classification ASA Score: ASA 2 Emergency Case?: No NPO Status NPO Status: NPO Clears >2 hours, Solids >8 hours Anesthesia Plan Resuscitation Status: Full Code Anesthesia Technique: General Anesthesia Airway Planned: Natural Airway Monitors Used: Standard Monitors
[2023-02-12 15:46] VITALS: BMI 31.0
[2023-02-12 16:11] VITALS: BP 117/71; PULSE 98; RESP 16; TEMP 36; O2SAT 97
--- NOTE | 2023-02-12 16:38 | W.ANESPOSTOP ---
Postoperative Evaluation Date, Time and Location Date Performed: 02/12/23 Time Performed: 16:38 Patient Location: Day Surgery Unit Vital Signs Most Recent Imported Vital Signs: Most Recent Vital Signs Temp Pulse Resp BP Pulse Ox 36.0 C L 98 H 16 117/71 97 02/12/23 16:11 02/12/23 16:11 02/12/23 16:11 02/12/23 16:11 02/12/23 16:11 Pain Score Most Recent Pain Score: Most Recent Pain Score Pain Level 3 02/12/23 16:11 Assessment Mental Status: Awake (Alert & Oriented to Patient Baseline) Airway and Respiratory Function: Patent airway with normal (patient baseline) respiratory exam Cardiovascular Function: Hemodynamically Stable Hydration Status: Adequately Hydrated Nausea & Vomiting: No Nausea or Vomiting Pain: Pt. Denies Any Pain Peripheral Nerve Block: Patient did not receive a nerve block
--- NOTE | 2023-02-12 16:41 | W.COLOREPORT ---
Date of service: 02/12/23 Time of Service: 16:41 Colonoscopy Report Procedure Description: Procedures performed: 1. Colonoscopy Preoperative diagnosis: Screening colonoscopy Postoperative diagnosis: Normal Colon, normal rectum, grade 1 internal hemorrhoids Surgeon: Haley Saunders Anesthesia: Jaron Indication for procedure: 63-year-old woman without any symptoms, no prior colonoscopy, her father has a history of colon cancer. Findings: Normal terminal ileum.? Normal Colon.? Normal Rectum. Grade 1 internal hemorrhoids on retroflexion. Surveillance/follow-up recommendations: 5 years because of the family history. Complications: None Blood loss: Minimal Prep: Excellent Specimens:? None Procedure in detail: Written consent was obtained from the patient who was in agreement with the risks, benefits and indications of the procedure.? We went to the endoscopy suite and laid the patient in left lateral decubitus position.? Anesthesia was administered which was tolerated well.? A timeout was performed and when we are all in agreement we began the procedure. Digital rectal exam and visual examination was performed and within normal limits.? A well?lubricated colonoscope was advanced without difficulty all the way to the cecum identified by the ileocecal valve, and triangular folds and appendiceal orifice.? Terminal ileum was normal.? It was then slowly withdrawn.?? Retroflexion was performed in the rectum.? The findings/interventions are noted above. The scope was then removed and the patient tolerated the procedure well and was then taken back to the PACU in hemodynamically stable condition.
[2023-02-12 16:42] VITALS: BP 120/82; PULSE 81; RESP 16; TEMP 36.1; O2SAT 97
== END 2023-02-12 17:01 | disposition home or self-care (01) ==
PROVIDERS: PCP Family Medicine; Visit Provider Student in an Organized Health Care Education/Training Program
PROC: 0DJD8ZZ Inspection of Lower Intestinal Tract, Via Natural or Artificial Opening Endoscopic (ICD-10-PCS; CPT 45378; principal; 2023-02-12 14:45)
DX: Z12.11 Encounter for screening for malignant neoplasm of colon (principal); K64.0 First degree hemorrhoids
CPT/HCPCS: G0121

== ENCOUNTER 2023-05-07 03:36 | Outpatient (CLI) | payer MEDICARE, SELFPAY ==
[2023-05-07 12:34] LABS: ALT 23 U/L (14-59); AST 18 U/L (15-37); Albumin 3.7 g/dL (3.4-5.0); Alkaline Phosphatase 91 U/L (46-116); Anion Gap 6.5 mmol/L (3-11); BUN 8 mg/dL (7-18); Bilirubin, Total 0.6 mg/dL (0.2-1.0); CO2 30.5 mmol/L (21.0-32.0); CREATININE 0.6 mg/dL (0.55-1.02); Calcium 9.1 mg/dL (8.5-10.1); Calculated LDL 131 mg/dL (<100); Chloride 107 mmol/L (98-107); Cholesterol 206 mg/dL (<200); Estimated GFR 99.55 (mL/min/1.73m2); Glucose 97 mg/dL (74-106); HDL Cholesterol 57 mg/dL (40-60); Potassium 4.1 mmol/L (3.5-5.1); Sodium 144 mmol/L (136-145); TSH (W/Ref FT4) 0.35 uIU/mL (0.36-3.74); Total Protein 7.6 g/dL (6.4-8.2); Triglyceride 92 mg/dL (<150)
[2023-05-07 12:54] LABS: FREE T4 0.99 ng/dL (0.76-1.46)
== END 2023-05-07 03:37 | disposition home or self-care (01) ==
LOC: LOS 03:36
PROVIDERS: PCP Family Medicine; Visit Provider Family Medicine
DX: B37.2 Candidiasis of skin and nail (principal); F17.210 Nicotine dependence, cigarettes, uncomplicated; R53.83 Other fatigue
CPT/HCPCS: 36415; 80053; 80061; 84439; 84443

== ENCOUNTER → 2023-05-13 03:25 | Outpatient (CLI) | payer MEDICARE, SELFPAY ==
--- NOTE | 2023-05-13 07:00 | DI.CTLCSR_ITS ---
Exam(s) CT CHEST LUNG CANCER SCREEN EXAM: CT CHEST LUNG CANCER SCREEN CLINICAL HISTORY: Screening for lung cancer,CURRENT SMOKER, F17.210 TECHNIQUE: Imaging Protocol: Axial computed tomography images with coronal and sagittal reformatted images were created and reviewed COMPARISON: CT CT CHEST WO from 09/03/2022 FINDINGS: Tracheobronchial tree: Patent where visualized. Pulmonary parenchyma: No consolidation or dominant measurable mass. No architectural distortion. Nons pecific atelectatic changes are seen in the lung bases. No focal consolidations are seen. Lung Nodules: None. Mediastinum and Phoebe: No dominant adenopathy or fluid collection. The esophagus is unremarkable. Thyroid gland: Unremarkable. Lymph nodes: Unremarkable. Pleura: No effusion or pneumothorax. Heart: The heart is not dilated. Mild coronary artery calcification is present. No pericardial effus ion. Aorta: Stable 3.9 cm diameter of the ascending thoracic aorta.Atherosclerosis is present. Upper abdomen: Unremarkable. Soft Tissues: Unremarkable. Bones: Within normal limits. IMPRESSION: No pulmonary nodules. Lung RADS Cat 1 - Negative: No nodules and definitely benign nodules Lung-RADS 1.0 CATEGORIES: Category 0 - Prior chest CT exam(s) being located for comparison. Category 1 - Annual screening in 12 months. No nodules or definitely benign nodules. Category 2 - Annual screening in 12 months. Benign appearance. Nodules with low likelihood of becomin g active cancer. Category 3 - 6-month follow-up. Probably benign. Short-term follow-up suggested. Nodules with low lik elihood of becoming active cancer. Category 4A - 3-month follow-up and CT/PET if >8 mm in size. Suspicious finding. Findings which requi re additional testing. Category 4B - Findings which require additional testing and tissue sampling. Suspicious finding. Category 4X - Category 3 or 4 nodules with additional features or imaging findings that increases the suspicion of malignancy. Modifier S- Potentially clinically significant finding. (Non lung cancer) RADIATION DOSE DELIVERED: 71.15mGy.cm Total DLP 71.15mGy.cmTotal DLP DATA REPOSITORY: All CT scans at this facility are submitted to the National Radiology Data Registry (NRDR) Dose Index Registry (DIR) with the [employer] (ACR). RADIATION OPTIMIZATION: All CT scans at this facility use at least one of these dose optimization te chniques: automated exposure control; mA and/or kV adjustment per patient size (includes targeted exa ms where dose is matched to clinical indication); or iterative reconstruction.
== END ==
PROVIDERS: PCP Family Medicine; Visit Provider Family Medicine
DX: F17.210 Nicotine dependence, cigarettes, uncomplicated (principal); Z12.2 Encounter for screening for malignant neoplasm of respiratory organs
CPT/HCPCS: 71271

== ENCOUNTER → 2023-08-07 08:59 | Outpatient (BNVA) | payer MEDICARE, SELFPAY | PROVIDERS: PCP Family Medicine; Referring Provider Family Medicine; Visit Provider Podiatrist | DX: Z48.817 Encounter for surgical aftercare following surgery on the skin and subcutaneous tissue (principal); L60.0 Ingrowing nail; B35.3 Tinea pedis; B35.1 Tinea unguium | CPT/HCPCS: 99213 ==

== ENCOUNTER 2023-08-27 02:27 | Outpatient (CLI) | payer MEDICARE, SELFPAY ==
[2023-08-27 08:46] LABS: TSH 0.83 uIU/mL (0.36-3.74)
== END 2023-08-27 02:28 | disposition home or self-care (01) ==
LOC: LBO 02:27
PROVIDERS: PCP Family Medicine; Visit Provider Physician Assistant
DX: E03.9 Hypothyroidism, unspecified (principal)
CPT/HCPCS: 36415; 84443

== ENCOUNTER → 2023-11-22 00:32 | Outpatient (CLI) | payer MEDICARE, SELFPAY ==
--- NOTE | 2023-11-22 06:30 | DI.DEXA_ITS ---
Exam(s) XR DEXA BONE DENSITY W/WO VALERIA EXAM: XR DEXA BONE DENSITY W/WO VALERIA CLINICAL HISTORY: post menopausal,screening for osteoporosis, z78.0 TECHNIQUE: COMPARISON: No exams were available for comparison FINDINGS: Lateral Spine Image: Unremarkable. No compression deformities identified. Left hip: Total T-Score: 0.0 Total Z-Score: 1.3 T- and Z-scores: Within normal limits. Lumbar Spine: Total T-Score: 0.5 Total Z-Score: 0.4 T- and Z-scores: Within normal limits. Osteoporosis is seen in the mid left forearm with a T-score of -3.0. IMPRESSION: Osteoporosis seen in the mid left forearm. No evidence of osteoporosis seen in the lumbar spine or l eft hip.
--- NOTE | 2023-11-22 08:50 | DI.MAMMO_ITS ---
Exam(s) MAMMO SCREENING EXAM: MAMMO SCREENING CLINICAL HISTORY: screening,z12.39 TECHNIQUE: Bilateral full field digital CC and MLO mammographic images were obtained with 3D tomosyn thesis and utilizing computer aided detection (CAD). COMPARISON: Available for comparison. FINDINGS: Masses/Architectural Distortion: None seen. Microcalcifications: No suspicious pleomorphic-type are seen. Skin Thickening/Nipple Retraction: None. IMPRESSION: 1. No significant interval change with no specific features of malignancy noted. 2. Unless there is more urgent need, screening mammography is recommended, as per [employer] guidelines. BI-RADS Category 1 - Negative Breast Density - Category B - Scattered areas of fibroglandular density Breast density category C or D implies that the patient has dense breast tissue. Dense breast tissue is very common and is not abnormal but dense breast tissue can make it harder to find cancer on a ma mmogram. Also, dense breast tissue may increase their breast cancer risk. This information about the result of the mammogram report was provided to the patient to raise their awareness. Use this report when you speak with the patient about their risks for breast cancer, which includes their family hist ory. At that time, you may recommend for more screening tests (Ultrasound or MRI) as they might be us eful based on their risk. A negative radiographic report should not delay biopsy if a dominant or clinically suspicious mass is present. Up to ten percent of cancers are not identified on mammography. A negative report may reinforce clinical impression. Adenosis and dense breasts may obscure an underlying neoplasm. False positive reports average 6 to 10%. Patient will receive a letter notifying them of these results.
== END ==
PROVIDERS: PCP Family Medicine; Visit Provider Family Medicine
DX: Z12.31 Encounter for screening mammogram for malignant neoplasm of breast (principal); Z78.0 Asymptomatic menopausal state; Z13.820 Encounter for screening for osteoporosis; M81.0 Age-related osteoporosis without current pathological fracture
CPT/HCPCS: 77063; 77067; 77080

== ENCOUNTER → 2023-12-10 07:58 | Outpatient (BNVA) | payer MEDICARE, SELFPAY | PROVIDERS: PCP Family Medicine; Referring Provider Family Medicine; Visit Provider Podiatrist ==

== ENCOUNTER 2024-05-15 00:02 | Outpatient (CLI) | payer OTHER, SELFPAY ==
--- NOTE | 2024-05-15 06:30 | DI.CTLCSR_ITS ---
Exam(s) CT CHEST LUNG CANCER SCREEN EXAM: CT CHEST LUNG CANCER SCREEN CLINICAL HISTORY: Screening for lung cancer,current smoker, f17.210 TECHNIQUE: Imaging Protocol: Axial computed tomography images with coronal and sagittal reformatted images were created and reviewed. Low dose screening protocol. COMPARISON: CT CT CHEST LUNG CANCER SCREEN from 05/13/2023 FINDINGS: Tracheobronchial tree: No bronchiectasis or mucus plugging. Mediastinum and Phoebe: No dominant adenopathy or fluid collection. Pulmonary parenchyma: No consolidation or dominant measurable mass. Minimal emphysematous changes. Lung Nodules: None. Pleura: No effusion. No pneumothorax. Heart: The heart is not dilated. No coronary artery calcifications are seen. Aorta: Ascending aorta measures 4.2 cm, mildly increased from prior exam. Upper abdomen: Unremarkable. Bones: Unremarkable for age. Soft Tissues: Unremarkable. IMPRESSION: No suspicious pulmonary nodules. Lung RADS Cat 1 - Negative: No nodules and definitely benign nodules Lung-RADS 1.0 CATEGORIES: Category 0 - Prior chest CT exam(s) being located for comparison. Category 1 - Annual screening in 12 months. No nodules or definitely benign nodules. Category 2 - Annual screening in 12 months. Benign appearance. Nodules with low likelihood of becomin g active cancer. Category 3 - 6-month follow-up. Probably benign. Short-term follow-up suggested. Nodules with low lik elihood of becoming active cancer. Category 4A - 3-month follow-up and CT/PET if >8 mm in size. Suspicious finding. Findings which requi re additional testing. Category 4B - Findings which require additional testing and tissue sampling. Category 4X - Category 3 or 4 nodules with additional features or imaging findings that increases the suspicion of malignancy. Modifier S- Potentially clinically significant findings (non lung cancer) RADIATION DOSE DELIVERED: 33.97mGy.cm Total DLP DATA REPOSITORY: All CT scans at this facility are submitted to the National Radiology Data Registry (NRDR) Dose Index Registry (DIR) with the [employer] (ACR). RADIATION OPTIMIZATION: All CT scans at this facility use at least one of these dose optimization te chniques: automated exposure control; mA and/or kV adjustment per patient size (includes targeted exa ms where dose is matched to clinical indication); or iterative reconstruction.
== END 2024-05-15 00:22 ==
LOC: DI 00:02
PROVIDERS: PCP Family Medicine; Visit Provider Family Medicine
DX: F17.210 Nicotine dependence, cigarettes, uncomplicated (principal); Z12.2 Encounter for screening for malignant neoplasm of respiratory organs
CPT/HCPCS: 71271

== ENCOUNTER 2024-06-01 01:16 | Outpatient (CLI) | payer OTHER, SELFPAY ==
--- NOTE | 2024-06-01 09:29 | DI.RAD_ITS ---
Exam(s) XR KNEE LT 3V AP,LAT,GROVER EXAM: XR KNEE LT 3V AP,LAT,GROVER CLINICAL HISTORY: lt knee pain,m25.562. TECHNIQUE: 2D digital imaging was performed. Three views. COMPARISON: No exams were available for comparison FINDINGS: BONES: No acute fracture is present. No bony destructive lesion is seen. JOINTS: Mild narrowing of lateral femoral tibial joint. Periarticular spurring. Patellofemoral join t is unremarkable. no joint effusion is seen. SOFT TISSUE: Normal. IMPRESSION: Degenerative changes of the femoral tibial joints, greater laterally. DATA REPOSITORY: RADIATION DOSE DELIVERED:
== END 2024-06-01 01:36 ==
LOC: DI 01:16
PROVIDERS: PCP Family Medicine; Visit Provider Family Medicine
DX: M17.12 Unilateral primary osteoarthritis, left knee (principal)
CPT/HCPCS: 73562

== ENCOUNTER 2024-07-21 03:14 | Outpatient (CLI) | payer OTHER, SELFPAY ==
[2024-07-21 11:40] LABS: Hemoglobin A1C 5.7 % (<5.7)
== END 2024-07-21 03:15 | disposition home or self-care (01) ==
LOC: LBO 03:14
PROVIDERS: PCP Family Medicine; Visit Provider Family Medicine
DX: E11.9 Type 2 diabetes mellitus without complications (principal)
CPT/HCPCS: 36415; 83036

== ENCOUNTER 2024-08-25 01:11 | Outpatient (CLI) | payer OTHER, SELFPAY ==
--- NOTE | 2024-08-25 | DI.CT_ITS ---
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 TECHNIQUE: Imaging protocol: Axial computed tomography images were obtained and coronal and sagittal reformatted images were created and reviewed. Computer aided detection (CAD) was utilized. CONTRAST MATERIAL: Noncontrast COMPARISON: CT CT CHEST LUNG CANCER SCREEN from 05/15/2024 FINDINGS: Pulmonary parenchyma: No consolidation. No suspicious nodules. Bibasilar atelectasis. Interstitial changes: None. Emphysema: Minimal near the apices. Tracheobronchial tree: No mucous plugging. No bronchiectasis . Pleura: No effusion or pneumothorax. Heart: The heart is mildly dilated, left ventricle. The coronary arteries show mild calcifications. Aorta: Thoracic aorta measures 4.2 cm, stable from prior. Mild atherosclerotic changes. Lymph nodes: No enlarged lymph nodes. Bones: Degenerative changes are seen. No evidence of compression fracture. Upper abdomen: Unremarkable. Soft tissues: sebaceous cyst posterior subcutaneous fat. IMPRESSION: No acute abnormality. RADIATION DOSE DELIVERED: 265.62mGy.cm Total DLP 265.62mGy.cm Total DLP DATA REPOSITORY: All CT scans at this facility are submitted to the National Radiology Data Registry (NRDR) Dose Index Registry (DIR) with the [employer] (ACR). RADIATION OPTIMIZATION: All CT scans at this facility use at least one of these dose optimization te chniques: automated exposure control; mA and/or kV adjustment per patient size (includes targeted exa ms where dose is matched to clinical indication); or iterative reconstruction.
--- NOTE | 2024-08-25 | DI.CT_ITS ---
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 TECHNIQUE: Imaging Protocol: Axial computed tomography images with coronal and sagittal reformatted images were created and reviewed CONTRAST MATERIAL: Intravenous: Omnipaque 350 Contrast volume:100 ml contrast COMPARISON: MR MR CERVICAL SPINE WO/W from 03/27/[address] NECK W from 09/03/2022 FINDINGS: The exam is limited by streak artifact from dental work. Parotids: Right parotid is unremarkable. Small amount of residual left parotid tissue is present, un changed from prior. No evidence of recurrent mass. Submandibular glands: Right submandibular gland appears normal. The left submandibular gland is agai n noted to be smaller and hypo dense Thyroid gland: Normal. Lymph nodes: There are scattered lymph nodes seen along the level one to level three all measuring le ss than 8 mm in short axis diameter which are physiologic in nature. Carotids arteries: Calcification at the bulb and proximal internal carotid arteries, left greater jakub n right. No significant stenosis or dissection. Vertebral arteries: Patent. No significant stenosis or dissection. Soft tissues: The floor the mouth is unremarkable. The tonsils and adenoids are unremarkable. The epiglottis and vocal cords are within normal limits. Lungs: Show expiratory changes. Mild emphysematous changes also present. Bones: Degenerative changes of the cervical spine. Temporomandibular joints appear normal. There is no significant degenerative change. There is normal alignment. Visualized portions of the brain and orbits: Unremarkable. Sinuses and mastoids: Clear. Small amount of mucous retention at the floor of the right maxillary si nus. IMPRESSION: Post treatment changes of the left parotid and submandibular glands. No evidence of adenopathy or re currence mass. RADIATION DOSE DELIVERED: 284.77mGy.cm Total DLP DATA REPOSITORY: All CT scans at this facility are submitted to the National Radiology Data Registry (NRDR) Dose Index Registry (DIR) with the [employer] ([employer]). RADIATION OPTIMIZATION: All CT scans at this facility use at least one of these dose optimization te chniques: automated exposure control; mA and/or kV adjustment per patient size (includes targeted exa ms where dose is matched to clinical indication); or iterative reconstruction.
[2024-08-25 09:03] LABS: CREATININE 0.7 mg/dL (0.55-1.02); Estimated GFR 95.32 (mL/min/1.73m2)
[2024-08-25] MEDS: Omnipaque 350 MG/ML 500 ML BTL-Imaging package IJ (09:49)
[2024-08-25] MEDS: Normal Saline - Diluent 50 ML VIAL IJ (09:52)
== END 2024-08-25 01:31 ==
LOC: DI 01:11
PROVIDERS: PCP Family Medicine; Visit Provider Preventive Medicine Undersea and Hyperbaric Medicine
DX: C07 Malignant neoplasm of parotid gland (principal)
CPT/HCPCS: 70491; 71250; 82565

== ENCOUNTER 2024-10-06 17:16 | Emergency (ER) | payer MEDICARE, SELFPAY ==
--- NOTE | 2024-10-06 17:15 | RT.EKG_ITS ---
APPROVED REPORT Exam: Resting ECG Reason for Exam: difficulty breathing Patient Location: E HR:88 bpm ECG Measurements Heart Rate 88 AXIS OR 136 P 52 QRSd 90 QRS 35 QT 355 T 64 QTc 431 Conclusion Sinus rhythm 88 normal axis no stemi
[2024-10-06 17:26] VITALS: BP 137/91; PULSE 88; RESP 22; TEMP 36.6; O2SAT 94
--- NOTE | 2024-10-06 17:45 | DI.RAD_ITS ---
Exam(s) XR PORTABLE CHEST AP EXAM: XR PORTABLE CHEST AP CLINICAL HISTORY: sob TECHNIQUE: 2D digital imaging was performed of the chest. One image was obtained. An AP view was ob tained. COMPARISON: CT CT CHEST WO from 08/25/2024 FINDINGS: MEDIASTINUM: Normal. HEART: Normal. PULMONARY VASCULATURE: Normal. LUNGS: Clear. PLEURAL SPACE: No pleural effusion or pneumothorax. BONE:Within normal limits for the patient's age. OTHER FINDINGS:Normal. IMPRESSION: No acute pulmonary findings. DATA REPOSITORY: RADIATION DOSE DELIVERED:
[2024-10-06] MEDS: methylPREDNISolone SUCC 125 MG VIAL IVP (18:11)
[2024-10-06] MEDS: Albuterol/Ipratropium 3 ML UPD VIAL UPD ×3 (18:11)
[2024-10-06 18:13] LABS: Abs Immature Grans 0.02 10^3/uL (0.0-0.06); Absolute Basophil Count 0.04 10^3/uL (0.0-0.2); Absolute Eosinophil Count 0.34 10^3/uL (0.0-0.7); Absolute Lymphocyte Count 1.71 10^3/uL (1.2-3.4); Absolute Monocyte Count 0.49 10^3/uL (0.1-0.8); Absolute Neutrophil Count 2.62 10^3/uL (1.2-6.7); Basophils % 0.8 %; Eosinophils % 6.5 %; HCT 43.7 % (36.0-46.0); HGB 13.9 g/dL (11.2-15.7); Immature Grans % 0.4 %; Lymphocytes % 32.8 %; MCH 30.9 pg (27.0-33.0); MCHC 31.8 % (32.0-36.0); MCV 97 fL (80-95); Monocytes % 9.4 %; Neutrophils % 50.1 %; Platelet Count 289 10^3/uL (130-400); RDW-SD 46.7 fL; WBC 5.22 10^3/uL (4.4-10.8)
[2024-10-06 18:17] VITALS: BP 140/63; PULSE 80; O2SAT 100
[2024-10-06 18:39] VITALS: RESP 5; RESP 6; RESP 8; O2SAT 100
[2024-10-06 18:40] LABS: ALT 21 U/L (14-59); AST 19 U/L (15-37); Albumin 3.1 g/dL (3.4-5.0); Alkaline Phosphatase 110 U/L (46-116); Anion Gap 4.7 mmol/L (3-11); BUN 11 mg/dL (7-18); Bilirubin, Total 0.18 mg/dL (0.2-1.0); CO2 32.3 mmol/L (21.0-32.0); CREATININE 0.8 mg/dL (0.55-1.02); Calcium 8.7 mg/dL (8.5-10.1); Chloride 107 mmol/L (98-107); Estimated GFR 81.21 (mL/min/1.73m2); Glucose 97 mg/dL (74-106); NT-proBNP 58 pg/mL (<300); Potassium 4.1 mmol/L (3.5-5.1); Sodium 144 mmol/L (136-145); Total Protein 7.1 g/dL (6.4-8.2)
[2024-10-06] MEDS: Azithromycin 250 MG TAB 500 MG PO (19:30)
[2024-10-06 19:34] VITALS: BP 145/59; PULSE 82; RESP 18; O2SAT 100
--- NOTE | 2024-10-06 20:13 | NUR.NOTE ---
Nursing Note: RN in chart to read discharge papers to understand treatment course today. Pt called and had questions. MD sending cough syrup to the pharmacy
--- NOTE | 2024-10-06 20:27 | W.ED.GENAD ---
Discharge Plan Disposition Patient Disposition: Home Condition: Stable Discharge Details Clinical Impression: Bronchitis, Atypical pneumonia Primary Care Provider: Cindy Fitch ED Provider: Sheila Kidd Home Meds and New Rx's Prescriptions: New azithromycin 250 mg tablet 250 mg PO DAILY 4 Days Qty: 4 0RF Rx Instructions: start on day 2 of therapy prednisone 20 mg tablet 40 mg PO DAILY 4 Days Qty: 8 0RF promethazine 6.25 mg/5 mL syrup 12.5 mg PO Q6H PRN (Reason: cough) Qty: 120 0RF No Action ibuprofen 200 mg tablet 400 mg PO TID PRN acetaminophen [Tylenol Extra Strength] 500 mg tablet 1,000 mg PO Q6H PRN oxycodone 5 mg tablet 2.5 mg PO DAILY PRN Patient Comments: Rx'd by Pain Mgmt at [facility] [place]. geoffrey Systane Balance 0.6 % drops 1 drp ophthalmic (eye) DAILY PRN mupirocin 2 % ointment 1 applic topical TID Qty: 15 0RF fluticasone furoate-vilanterol [Breo Ellipta] 100-25 mcg/dose blister with device 1 inh inhalation DAILY Qty: 90 12RF albuterol sulfate [Ventolin HFA] 90 mcg/actuation HFA aerosol inhaler 2 puff inhalation Q6H PRN (Reason: shortness of breath or wheezing) Qty: 25.5 4RF Discharge Instructions Instructions: Atypical Pneumonia (Mycoplasma and Viral) (DC) HPI General Date/Time Provider Initiated Documentation: 10/06/24 17:48. Limitations to Documentation: no limitations. Information obtained by: patient. HPI Narrative: 64-year-old female with past medical history of head and neck cancer, tobacco abuse presents for evaluation of cough. The patient reports daily tobacco use. She states that she does have a daily controller inhaler as well as an albuterol inhaler. She states that she has been using her albuterol inhaler more often. She states her chest feels tight when she coughs and that she cannot cough anything up. No recent fever. Related Data Home Medications ?Medication ?Instructions ?Recorded ?Confirmed propylene glycol 0.6 % eye drops 1 drp ophthalmic (eye) DAILY PRN 10/02/21 10/06/24 (Systane Balance) acetaminophen 500 mg tablet 1,000 mg PO Q6H PRN 05/04/23 01/14/25 (Tylenol Extra Strength) ibuprofen 200 mg tablet 400 mg PO TID PRN 11/04/23 10/06/24 fluticasone furoate 100 1 inh inhalation DAILY #90 ea 12/19/23 10/06/24 mcg-vilanterol 25 mcg/dose inhalation powder (Breo Ellipta) mupirocin 2 % topical ointment 1 applic topical TID #15 grams 03/23/24 10/06/24 oxycodone 5 mg tablet 2.5 mg PO DAILY PRN 05/26/24 10/06/24 albuterol sulfate 90 mcg/actuation 2 puff inhalation Q6H PRN 05/27/24 10/06/24 aerosol inhaler (Ventolin HFA) shortness of breath or wheezing #25.5 grams azithromycin 250 mg tablet 250 mg PO DAILY 4 days #4 tabs 10/06/24 prednisone 20 mg tablet 40 mg (2 x 20 mg) PO DAILY 4 days 10/06/24 #8 tabs promethazine 6.25 mg/5 mL oral 12.5 mg (10 mL) PO Q6H PRN cough 10/06/24 syrup #120 mL Previous Rx's ?Medication ?Instructions ?Recorded fluticasone furoate 100 1 inh inhalation DAILY #90 ea 12/19/23 mcg-vilanterol 25 mcg/dose inhalation powder (Breo Ellipta) mupirocin 2 % topical ointment 1 applic topical TID #15 grams 03/23/24 albuterol sulfate 90 mcg/actuation 2 puff inhalation Q6H PRN 05/27/24 aerosol inhaler (Ventolin HFA) shortness of breath or wheezing #25.5 grams azithromycin 250 mg tablet 250 mg PO DAILY 4 days #4 tabs 10/06/24 prednisone 20 mg tablet 40 mg (2 x 20 mg) PO DAILY 4 days 10/06/24 #8 tabs promethazine 6.25 mg/5 mL oral 12.5 mg (10 mL) PO Q6H PRN cough 10/06/24 syrup #120 mL Allergies Allergy/AdvReac Type Severity Reaction Status Date / Time adhesive Allergy Intermediate rash Verified 05/26/24 08:49 Tetracyclines Allergy Hives Verified 05/26/24 08:49 General Stated Complaint: SOB DIANE: 3 Exam Narrative Exam Narrative: Review of Systems: All systems reviewed & are unremarkable except as noted in HPI and below Well-developed, no acute distress NCAT Head and neck surgical changes noted RRR Unlabored respiratory effort no hypoxia or increased work of breathing, coarse breath sounds bilaterally with poor air movement and wheezing noted Nondistended abdomen nontender Extremities w/o edema Course Vital Signs Vital signs: Vital Signs Temperature 36.6 C 10/06/24 17:26 Pulse 88 10/06/24 17:26 Respiratory Rate 22 10/06/24 17:26 Blood Pressure 137/91 H 10/06/24 17:26 Pulse Oximetry 94 10/06/24 17:26 Temperature 36.6 C 10/06/24 17:26 Temperature Source Oral 10/06/24 17:26 Pulse 82 10/06/24 19:34 Respiratory Rate 18 10/06/24 19:34 Respiratory Effort Short of Breath 10/06/24 17:44 Respiratory Depth Shallow 10/06/24 17:44 Respiratory Pattern Normal 10/06/24 17:44 Blood Pressure 145/59 H 10/06/24 19:34 Blood Pressure Mean 88 10/06/24 18:17 Blood Pressure Position Sitting 10/06/24 17:26 Pulse Oximetry 100 10/06/24 19:34 Oxygen Delivery Method Room Air 10/06/24 17:26 Oxygen Flow Rate 0 10/06/24 17:26 Lab/Test Results Lab/Test Results: Laboratory Tests Range/Units 10/06/24 18:07 WBC (4.4-10.8) 10^3/uL 5.22 RBC (3.93-5.22) 10^6/uL 4.50 Hgb (11.2-15.7) g/dL 13.9 Hct (36.0-46.0) % 43.7 MCV (80-95) fL 97 H MCH (27.0-33.0) pg 30.9 MCHC (32.0-36.0) % 31.8 L RDW (11.7-14.6) % 13.0 Plt Count (130-400) 10^3/uL 289 MPV (8.0-11.0) fL 9.0 Immature Gran % % 0.4 Neutrophils % % 50.1 Lymphocytes % % 32.8 Monocytes % % 9.4 Eosinophils % % 6.5 Basophils % % 0.8 Nucleated RBC % (0.0-0.3) % 0.0 Absolute Neutrophils (1.2-6.7) 10^3/uL 2.62 Absolute Lymphocytes (1.2-3.4) 10^3/uL 1.71 Absolute Monocytes (0.1-0.8) 10^3/uL 0.49 Absolute Eosinophils (0.0-0.7) 10^3/uL 0.34 Absolute Basophils (0.0-0.2) 10^3/uL 0.04 Sodium (136-145) mmol/L 144 Potassium (3.5-5.1) mmol/L 4.1 Chloride (98-107) mmol/L 107 Carbon Dioxide (21.0-32.0) mmol/L 32.3 H Anion Gap (3-11) mmol/L 4.7 BUN (7-18) mg/dL 11 Creatinine (0.55-1.02) mg/dL 0.8 Est GFR (CKD-EPI 2020) (mL/min/1.73m2) 81.21 Glucose (74-106) mg/dL 97 Calcium (8.5-10.1) mg/dL 8.7 Magnesium (1.8-2.4) mg/dL 2.0 Total Bilirubin (0.2-1.0) mg/dL 0.18 L AST (15-37) U/L 19 ALT (14-59) U/L 21 Alkaline Phosphatase (46-116) U/L 110 NT-Pro-B Natriuret Pep (<300) pg/mL 58 Total Protein (6.4-8.2) g/dL 7.1 Albumin (3.4-5.0) g/dL 3.1 L Medical Decision Making Emergent evaluation of cough and shortness of breath. Patient has history of COPD and tobacco abuse. Initial differential includes viral syndrome, pneumonia, COPD exacerbation. She does not have any hypoxia or signs of respiratory failure at this time. Low suspicion for ACS. EKG obtained and independently interpreted: Sinus 88 normal axis no acute ischemic changes the patient was given IV steroids as well as 3 DuoNebs which improved her symptoms greatly. On reevaluation, she had improved air movement and minimal wheezing. Lab work was obtained, no leukocytosis or anemia. Her CMP with is without significant derangement. BNP is not elevated. A chest x-ray was obtained and this did not show focal consolidation pulmonary edema or pleural effusion. Her viral testing was negative. Given her symptoms and medical comorbidities, I will treat for atypical pneumonia with antibiotics, azithromycin. Will continue steroid burst and provide cough medication. Recommend continued supportive care. Return precautions advised. 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,, 2000 Medical History Vascular abnormality Cellulitis Ingrown toenail of right foot Negar onychomycosis Encounter for screening colonoscopy Mass in neck removed-also had radiation over a year and a half ago Bunion of left foot Intestine, perforation 1 month in hospital w/ drains Diverticulitis Surgical History History of bunionectomy of left great toe Social History Smoking/Tobacco Use Status: Current every day Tobacco Type: cigarettes Tobacco: How many years used: 53 Quit status: considering quitting Second Hand Exposure: Yes Smoking risk assessment performed?: Yes Alcohol Intake: current Alcohol Intake frequency: holidays/special occasions only Drug use: Occasionally Substance use type: marijuana Caregiver/Support person: No Household members: none Housing: apartment Communication Needs: None Do you need help understanding health information?: Rarely Pets and animals: Yes Pets and animals: dog(s) Sexually active: No Do you think of yourself as: straight/heterosexual Current gender identity: female What is your relationship status?: never How often do you talk on the phone with friends or family?: decline to answer How often do you get together with friends or relatives?: three or more times per week How often do you attend restorationist or sabianism services?: decline to answer Do you belong to any clubs or organized social groups?: no Panel score (0-1 are the most socially isolated patients): 1 What type of physical activity do you participate in: walking Duration: > 90 minutes/day Frequency: daily Seatbelt use: always Helmet use: No Drive intox or ride w/intox otr company driver: No Do you feel safe at home: Yes Additional Social history: live alone
--- NOTE | 2024-10-07 10:30 | NUR.NOTE ---
Nursing Note: Pt called stating that her prescription that was sent in yesterday was being reported as not being received by [facility] in [place]. I looked at the discharge and noted that the prescriptions were sent to [facility] in [place]. Pt stated that she is going to go to [facility] and see if they are done. If they do not have them then she is going to call me back and we are going to get them sent to [facility] in [place] but will check with [facility] first.
== END 2024-10-06 19:34 | disposition home or self-care (01) ==
PROVIDERS: Emergency Provider Emergency Medicine; PCP Family Medicine
DX: J40 Bronchitis, not specified as acute or chronic (principal); J18.9 Pneumonia, unspecified organism
CPT/HCPCS: 36415; 80053; 93005; 94640; 96374; 99285; 71045; 83735; 83880; 85025; 93010; 99284; J2919; J7620

== ENCOUNTER 2024-10-15 02:50 | Outpatient (CLI) | payer MEDICARE, SELFPAY ==
--- NOTE | 2024-10-15 07:00 | DI.RAD_ITS ---
Exam(s) XR CHEST 2V PA LATERAL EXAM: XR CHEST 2V PA LATERAL CLINICAL HISTORY: Worsening COUGH,R05.9,? PNEUMONIA. TECHNIQUE: 2D digital imaging was performed. COMPARISON: CR XR PORTABLE CHEST AP from 10/06/2024 FINDINGS: 2 views: Heart size is normal. The mediastinum is not widened. Right lung is clear. There is subsegmental platelike atelectasis in the lateral left lung base. No pleural effusions. No pulmonary edema. No pneumothorax. No fractures. IMPRESSION: There is subsegmental platelike atelectasis in the lateral left lung base. DATA REPOSITORY: RADIATION DOSE DELIVERED:
== END 2024-10-15 03:10 ==
LOC: DI 02:51
PROVIDERS: PCP Family Medicine; Visit Provider Nurse Practitioner Family
DX: R05.9 Cough, unspecified (principal)
CPT/HCPCS: 71046

== ENCOUNTER 2024-10-23 01:05 | Outpatient (CLI) | payer MEDICARE, SELFPAY ==
[2024-10-23] MEDS: Levalbuterol HFA 15 GM INH 4 PUFF IH (09:25)
[2024-10-23] MEDS: Inhaler, Assist Device 1 EACH MC (09:25)
--- NOTE | 2024-10-27 16:13 | W.PFT ---
Date of service: 10/23/24 Time of Service: 08:02 Pulmonary Function Test Result Indications: COPD Interpretation Spirometry: There is mild airflow limitation. No significant bronchodilator response. Lung Volumes: There is air trapping Diffusion Capacity: Normal diffusion Airway Pressure: Normal airways resistance Impression Mild airflow obstruction with air trapping and a normal diffusion. Clinical Correlation therefore is recommended.
== END 2024-10-23 01:06 | disposition home or self-care (01) ==
LOC: RT 01:05
PROVIDERS: PCP Family Medicine; Visit Provider Student in an Organized Health Care Education/Training Program
DX: J44.9 Chronic obstructive pulmonary disease, unspecified (principal)
CPT/HCPCS: 94060; 94726; 94729

== ENCOUNTER 2025-06-01 08:16 | Outpatient (CLI) | payer MEDICARE, SELFPAY ==
[2025-06-01 14:28] LABS: ALT 20 U/L (14-59); AST 12 U/L (15-37); Albumin 3.5 g/dL (3.4-5.0); Alkaline Phosphatase 96 U/L (46-116); Anion Gap 5.4 mmol/L (3-11); BUN 12 mg/dL (7-18); Bilirubin, Total 0.5 mg/dL (0.2-1.0); CO2 31.6 mmol/L (21.0-32.0); Calcium 8.9 mg/dL (8.5-10.1); Calculated LDL 134 mg/dL (<100); Chloride 107 mmol/L (98-107); Cholesterol 199 mg/dL (<200); Estimated GFR 94.73 (mL/min/1.73m2); Glucose 106 mg/dL (74-106); HDL Cholesterol 45 mg/dL (>or=50); Potassium 4.2 mmol/L (3.5-5.1); Sodium 144 mmol/L (136-145); Total Protein 7.1 g/dL (6.4-8.2); Triglyceride 104 mg/dL (<150); Vitamin B12 299 pg/mL (193-986)
== END 2025-06-01 08:17 | disposition home or self-care (01) ==
LOC: LOS 08:16
PROVIDERS: PCP Nurse Practitioner Family; Visit Provider Family Medicine
DX: E53.8 Deficiency of other specified B group vitamins (principal); I10 Essential (primary) hypertension
CPT/HCPCS: 36415; 80053; 80061; 82607

== ENCOUNTER 2025-07-06 02:07 | Outpatient (CLI) | payer MEDICARE, SELFPAY ==
--- NOTE | 2025-07-06 06:45 | DI.MAMMO_ITS ---
Exam(s) MAMMO SCREENING EXAM: MAMMO SCREENING CLINICAL HISTORY: screening,z12.39 TECHNIQUE: Mammograms were interpreted according to the usual protocol including computer analysis with CAD system, tomosynthesis and C-view imaging. COMPARISON: 2021 and 2023 FINDINGS: The breasts are composed of mainly fatty density , Breast Density category A. No suspicious masses or suspicious microcalcifications are seen. No skin thickening or abnormal axillary lymph nodes are seen. There has been no significant change from prior exams. IMPRESSION: BI-RADS Category 1, Negative mammogram Yearly screening mammography is recommended. Breast Density- Category A - The breast are almost entirely fatty. Breast density Category C or D implies that the patient has dense breast tissue. Dense breast tissue can make it harder to find cancer on a mammogram. Dense breast tissue is also associated with an increased risk of breast cancer. This information about the result of the mammogram report was provided to the patient to raise their awareness. Use this report when you speak with the patient about their risks for breast cancer, which includes their family history. At that time, you may recommend additional screening tests (Ultrasound or MRI) as these tests may add significant information. A negative radiographic report should not delay biopsy if a dominant or clinically suspicious mass is present. Up to ten percent of cancers are not identified on mammography. A negative report may reinforce clinical impression. Adenosis and dense breasts may obscure an underlying neoplasm. False positive reports average 6 to 10%. Patient will receive a letter notifying them of these results.
== END 2025-07-06 02:27 ==
LOC: DI 02:07
PROVIDERS: PCP Nurse Practitioner Family; Visit Provider Nurse Practitioner Family
DX: Z12.31 Encounter for screening mammogram for malignant neoplasm of breast (principal); R92.313 Mammographic fatty tissue density, bilateral breasts
CPT/HCPCS: 77063; 77067